=== PATIENT | female | born 1990 | race Two or more races ===

== ENCOUNTER → 2017-05-12 13:04 | Outpatient (CLI) | payer OTHER, SELFPAY ==
--- NOTE | 2017-05-12 13:06 | US_ITS ---
US OB /maternal detail: INDICATION: Negative exam, 20 week checkup ITS.REASON: US OB Complete ORDERING PHYSICIAN: Chris Crocker MD PATIENT AGE: 26 years TECHNIQUE: ultrasound transabdominal scanning. COMPARISON: No previous relevant studies. FINDINGS: Single viable intrauterine gestation. breech position. Placenta: anterior placenta grade grade 1. There is marginal placenta previa. There is average amount fluid. The cervix appears satisfactory. Closed and measuring 5 cm in length. Complete survey performed and was unremarkable on the submitted images as in PACS. No discrete anomalies identified on survey imaging by technologist. Active fetus. Three-vessel cord with satisfactory umbilical cord insertion. 4- chamber heart noted. Survey of brain & ventricles. Face and neck survey unremarkable. Diaphragm and chest views unremarkable. Abdomen: Both kidneys noted and unremarkable. Stomach noted and satisfactory. Spine: Survey of the spine satisfactory with no anomalies identified nor imaged.. Spine evaluation is somewhat limited due to fetus positioning Both arms and legs noted. Amniotic Fluid: Adequate. Maternal adnexa: No significant findings. Measurements: Average ultrasound age 20w3d. Gestational Age 20w2d. Estimated due date by ultrasound age 0709/26/2017. Estimated weight 358 grams. This is 58 percentile according to last menstrual period BPD = 20w1d OFD = 20w6d HC = 19w6d AC = 21w0d FL = 20w2d Heart Rate = 126 bpm Cerebellum = 20w4d Humerus = 20w6d HC/AC is 1.09 (1.09-1.26). CI is 75% (70-86%). FL/BPD is 71%. FL/AC is 21%. IMPRESSION: Live intrauterine gestation in breech presentation with an average ultrasound age of 20 weeks 3 days. All parameters correlate. No obvious anomalies. Please see above for detail. Anterior marginal placenta previa
== END ==
PROVIDERS: Visit Provider Nurse Practitioner Obstetrics & Gynecology
DX: Z36.0 Encounter for antenatal screening for chromosomal anomalies (principal)
CPT/HCPCS: 76811

== ENCOUNTER → 2017-07-14 17:22 | Outpatient (CLI) | payer OTHER, SELFPAY ==
[2017-07-14 17:36] VITALS: BMI 25.6
--- NOTE | 2017-07-14 17:41 | PC.NURSE ---
12MG OF CELESTONE GIVEN IM IN RIGHT DELTOID. mED VERIFIED WITH Giana ZAVALA RN.
== END ==
PROVIDERS: PCP Nurse Practitioner Obstetrics & Gynecology; Visit Provider Nurse Practitioner Obstetrics & Gynecology
DX: O26.893 Other specified pregnancy related conditions, third trimester (principal); Z3A.29 29 weeks gestation of pregnancy
CPT/HCPCS: 96372

== ENCOUNTER 2017-07-15 17:03 | Outpatient (CLI) | payer OTHER, SELFPAY ==
[2017-07-15 17:17] VITALS: BP 118/72; PULSE 74; RESP 20; TEMP 36.6; BMI 29.9
== END 2017-07-15 17:45 | disposition home or self-care (01) ==
LOC: OBOUT 17:09 → OB 17:11
PROVIDERS: Visit Provider Nurse Practitioner Obstetrics & Gynecology
DX: O26.893 Other specified pregnancy related conditions, third trimester (principal); Z3A.29 29 weeks gestation of pregnancy
CPT/HCPCS: 96372

== ENCOUNTER 2017-08-21 23:47 | Outpatient (CLI) | payer OTHER, SELFPAY ==
[2017-08-21 23:55] VITALS: BMI 31.2
[2017-08-22 00:22] VITALS: BP 119/66; PULSE 98; RESP 16; TEMP 37.2; O2SAT 97; BMI 31.2
[2017-08-22 00:30] LABS: Fetal Membrane Rupture (Rapid) Positive (Negative)
[2017-08-22 01:13] VITALS: BP 119/66; PULSE 98; RESP 16; TEMP 37.2
== END 2017-08-22 01:49 | disposition short-term general hospital (02) ==
LOC: OBOUT 23:49 → OB 23:50
PROVIDERS: PCP Nurse Practitioner Obstetrics & Gynecology; Visit Provider Obstetrics & Gynecology
DX: O26.93 Pregnancy related conditions, unspecified, third trimester (principal); Z3A.34 34 weeks gestation of pregnancy; M54.5 Low back pain
CPT/HCPCS: 59025; 84112; J0290

== ENCOUNTER → 2019-12-27 10:20 | Outpatient (CLI) | payer OTHER, SELFPAY ==
[2019-12-27 10:45] LABS: Basophils # 0.1 K/mm3 (0-0.2); Basophils % 1.2 % (0.1-2.0); Eosinophils # 0.2 K/mm3 (0.0-0.4); Eosinophils % 5.5 % (0.1-12.0); Hematocrit 42.3 % (37.0-47.0); Hemoglobin 13.4 g/dL (12.2-16.2); Lymphocytes # 1.3 K/mm3 (0.7-4.5); Lymphocytes % 32.2 % (10-50); Mean Corpuscular HGB Conc 31.6 g/dL (31.8-35.4); Mean Corpuscular Hemoglobin 28.7 pg (27.0-31.2); Mean Platelet Volume 6.7 fl (7.4-10.4); Monocytes # 0.3 K/mm3 (0.1-1.0); Monocytes % 6.4 % (1.7-9.3); Neutrophils # 2.2 K/mm3 (1.8-7.8); Neutrophils % 54.7 % (37.0-80.0); Platelet Count 365 K/mm3 (142-424); Red Blood Count 4.65 M/mm3 (4.20-5.40); Red Cell Distribution Width 13.6 % (11.5-17.5); White Blood Count 4.1 K/mm3 (4.8-10.8)
[2019-12-27 11:05] LABS: Urine Pregnancy, HCG Qual. Negative (Negative)
[2019-12-27 11:33] LABS: Chloride 105 mmol/L (98-107); Potassium 4.7 mmoL/L (3.5-5.1); Sodium 139 mmol/L (136-145)
[2019-12-27 11:36] LABS: Blood Urea Nitrogen 14 mg/dl (7-17); Estimated Glomerular Filt Rate 85 ml/min (>60); GFR (African American) 103 ML/MIN (>60)
[2019-12-27 11:37] LABS: Calcium 9.5 mg/dl (8.4-10.2); Glucose 80 mg/dl (74-100)
[2019-12-27 11:48] LABS: Coronavirus 19 IgG Antibody Negative (Negative); Coronavirus 19 IgM Antibody Negative (Negative)
[2019-12-27 19:31] LABS: Anion Gap 11.7 mEq/L (5-15); Carbon Dioxide 27 mmol/L (22.0-30.0)
== END ==
PROVIDERS: Visit Provider Surgery
DX: Z01.89 Encounter for other specified special examinations (principal); K43.2 Incisional hernia without obstruction or gangrene
CPT/HCPCS: 36415; 80048; 81025; 85025; 86328

== ENCOUNTER 2019-12-28 08:53 | Day surgery (SDC) | payer OTHER, SELFPAY ==
[2019-12-26 12:40] VITALS: BMI 23.1
[2019-12-28] VITALS (12 sets, daily range): BP systolic 102–132; BP diastolic 66–78; PULSE 68–112; RESP 12–18; TEMP 36.4–43; O2SAT 98–100
--- NOTE | 2019-12-28 09:33 | HMH.ANESCL ---
[facility] Anesthesia Checklist - Patient Identification Patient Identification: Arm Band - Structural Data Admitted From: Home Planned Operative Procedure/s: diagnostic laparoscopy, hernia repair Consent for Planned Operative Procedure(s) Verified: Yes Verified Documents: Surgical Consent, History and Physical - NPO Status Verified Time NPO: 00:00 - Additional verifications Anesthesia Reactions: No Hx Blood Transfusions: No Blood Transfusion Reaction: No - Airway Assessment C-Spine Mobility Assessed: Yes (mp2) TMJ Mobility Assessed: Yes Dentition: Good Dentition - Neurological Assessment Level of Consciousness: Awake, Alert - Anesthesia Plan Anesthesia Risk discussed: Yes Anesthesia Plan: Verified ASA Class: I Anesthesia Type: General [facility] History I have reviewed the patient's past medical history: Yes Medical History: Reports:: Asthma Denies:: Cancer, Diabetes Mellitus Type 1, Diabetes Mellitus Type 2, Internal Pacemaker, MRSA, Seizures *Have you ever received a pneumonia vaccine?: No *Have you received a flu vaccine this season?: No Other Medical History: Denies: Blood Transfusion Reaction Anesthesia experience/problems:: nac Laterality Cases: Bilateral: Tonsillectomy, Other Other Surgeries: Yes: , Tubal Ligation, Other. No: Pacemaker Amputation: No Fractures: No - *Social History Smoking Status: Former smoker Tobacco Type: cigarettes Alcohol Intake: never Substance Use Type: denies use *Occupational Status:: employed Housing: house Household Members: spouse *Travel in the last 8 weeks: None Family Hx:: Diabetes, Hypertension
--- NOTE | 2019-12-28 11:42 | HMH.OPNOTE ---
Date of procedure: 12/28/19 Pre-op Diagnosis:: Lower abdominal mass, possible incarcerated hernia Post-op Diagnosis:: Lower abdominal subcutaneous mass/nodule Procedure performed:: Diagnostic laparoscopy Excision of lower abdominal/pelvic subcutaneous nodule Surgeon:: John Aguilar MD [employer] OPERATOR:: Oziel Pickering Anesthesia: GETA Estimated blood loss (mL): 15 Clinical Note:: Patient presents for surgery. She is a very pleasant 29-year-old female who resides in [facility] referred by Dr. Chris Crocker for possible incisional/abdominal wall hernia. Her primary care provider is Dr. Stefan Romero. She has had 3 prior C-sections. Last was about 2 years ago and this 1 was done at [facility]. She states that relatively shortly thereafter she had noticed a knot in the left superior aspect of her incision. Initially this was asymptomatic but over the past year she has had some increasing pain. She has significant burning pain and she states it is more noticeable when she is standing upright. She had been seen and underwent CT scan at [facility]. This reveals no acute findings by report. After my initial evaluation I felt she may very well have a small chronically incarcerated incisional hernia vs inflammatory soft tissue mass from previous and less likely endometriosis within the incisional scar. CT scan report from [facility] reveals, by report, no incisional hernia. I have obtained the films. I reviewed the films. She does have a subcutaneous soft tissue mass at the location but there is no clear underlying abdominal wall defect. Operative findings:: She had a firm subcutaneous nodule adherent to the fascia with at the site in question with no evidence of hernia defect. This could be an endometrioma. Operative note:: Patient was taken to the operating room. She was given preoperative antibiotics. In the operating room she was placed in a supine position. General anesthesia was induced via endotracheal tube. Saavedra catheter was placed. Abdomen was prepped and draped in the standard surgical fashion. Small 5 mm subumbilical incision was made while performing abdominal wall lift Veress needle was inserted. CO2 pneumoperitoneum was achieved to 15 mmHg. 5 mm optical trocar was inserted. 0 degree laparoscope was replaced with the 30 degree laparoscope. Abdominal surveillance was carried out laparoscopically. At the palpable nodule the underlying peritoneum was intact and there was no evidence of any fascial defect. CO2 pneumoperitoneum was then temporarily evacuated. Oblique incision was made overlying the palpable lesion. Dissection was carried down through subcutaneous tissues and Sarah's fascia using electrocautery. Please note that the inferior epigastric vessels were ligated with Vicryl ties. Firm nodule was encountered adherent to the pelvic fascia of the lower abdominal wall. Using mostly electrocautery as this was dissected free. There appeared to be some additional firm tissue somewhat medially and this was excised as well. Both pieces were sent as specimen. Wound was irrigated. Hemostasis was achieved with electrocautery. Local anesthetic was infiltrated. Although there did not appear to be fascial defect, the fascia where the lesion was excised was reinforced with 0 Ethibond suture. At this time, prior to completely closing the wound the abdomen was reinflated. Completion laparoscopy revealed once again no evidence of any fascial defect or peritoneal disruption. CO2 pneumoperitoneum was evacuated once again. The left lower quadrant wound was then closed by using interrupted 2-0 Vicryl to close Sarah's fascia. Skin was closed with 4-0 Monocryl in a subcuticular fashion. Umbilical incision was closed with a single 4-0 Vicryl. Clean dry sterile dressings were applied. Condition: stable Disposition: PACU Specimens:: Lower a
--- NOTE | 2019-12-28 11:51 | P.PN_ITS ---
[facility] Anesthesia Record Part I Intake, IV Amount: 1,500 Estimated blood loss (mL): 20 Urine output (mL): 100 Blood Pressure: 132/74 SaO2: 100 Pulse Rate: 100 Respiratory Rate: 12 Temperature: 97.8 F Patient is:: Awake, Stable Stable to PACU at:: 11:50
--- NOTE | 2019-12-29 06:48 | P.PN_ITS ---
[facility] [place] Anesthesia Record Part II Discharge Time: 12:20 Destination: Surgical Day Care (OP Surgery) PACU nurse assessment reviewed?: Yes Patient Condition:: Good Anesthesia Complications:: None Swallowing reflex intact?: Yes Cyanosis?: No Blood Pressure: 104/66 Pulse Rate: 82 Temperature: 97.6 F Mental Status: Alert & Oriented Pain level:: 0 Nausea and/or vomitting:: None Intake, IV Amount: 0 (NM)
[2019-12-29 06:49] VITALS: BP 104/66; PULSE 82; TEMP 36.4
== END 2019-12-28 13:15 | disposition home or self-care (01) ==
LOC: OR 08:54
PROVIDERS: PCP Emergency Medicine; Visit Provider Surgery
PROC: 0WQF4ZZ Repair Abdominal Wall, Percutaneous Endoscopic Approach (ICD-10-PCS; CPT 58662; principal; 2019-12-28 10:15)
DX: N80.3 Endometriosis of pelvic peritoneum (principal); J45.909 Unspecified asthma, uncomplicated; Z90.89 Acquired absence of other organs; Z83.3 Family history of diabetes mellitus; Z82.49 Family history of ischemic heart disease and other diseases of the circulatory system; Z88.6 Allergy status to analgesic agent; Z88.1 Allergy status to other antibiotic agents
CPT/HCPCS: 58662; 96374; J2405